=== PATIENT | male | born 1990 | race Caucasian/White ===

== ENCOUNTER 2024-09-17 22:46 | Emergency (ER) | payer OTHER ==
[~2024-09-17] VITALS: Ht 188 cm; Wt 93.0 kg
[2024-09-17 22:59] VITALS: BP 148/92; PULSE 70; RESP 15; TEMP 36.9; O2SAT 98
== END 2024-09-18 01:21 | disposition home or self-care (01) ==
LOC: ER 22:46
DX: S09.90XA Unspecified injury of head, initial encounter (principal); I10 Essential (primary) hypertension; V43.52XA Car driver injured in collision with other type car in traffic accident, initial encounter; Y93.89 Activity, other specified; Y92.89 Other specified places as the place of occurrence of the external cause; Y99.8 Other external cause status
CPT/HCPCS: 99284